=== PATIENT | female | born 1990 | race Caucasian/White ===

== ENCOUNTER 2023-02-01 08:30 | Outpatient (RCR) | payer BC, SELFPAY | END 2023-06-01 23:59 | disposition home or self-care (01) | PROVIDERS: Visit Provider Physician Assistant | DX: N39.3 Stress incontinence (female) (male) (principal); M54.50 Low back pain, unspecified; M62.81 Muscle weakness (generalized); M62.89 Other specified disorders of muscle; Z51.89 Encounter for other specified aftercare | CPT/HCPCS: 97110; 97140; 97162 ==

== ENCOUNTER 2023-07-12 09:58 | Inpatient (IN) | payer BC, SELFPAY ==
[2023-07-12] VITALS (70 sets, daily range): BP systolic 98–149; BP diastolic 47–82; PULSE 95–146; RESP 16; TEMP 36.5–36.9; O2SAT 93–99; BMI 40.2
[2023-07-12] MEDS: LACTATED RINGERS 1000 ML 1,000 ML IV (09:11)
[2023-07-12 09:17] LABS: Eosinophils Percent Auto 0.2 % (0.0-7.0); Hematocrit 40.7 % (33.0-51.0); Hemoglobin* 13.6 gm/dL (12.0-16.0); Immature Granulocytes Pct Auto 0.5 %; Lymphocytes Percent Auto 5.1 % (20-44); Mean Corpuscular HGB Conc 33 gm/dL (32-36); Mean Corpuscular Hemoglobin 29 pg (26-34); Mean Corpuscular Volume 87 fL (80-100); Monocytes Percent Auto 3.8 % (0.0-11.0); Neutrophils Percent Auto 90.4 % (42.0-72.0); Platelet Count* 240 K/uL (140-440); RDW Coefficient of Variation % 14.2 % (11.5-15.5); Red Blood Count 4.66 m/uL (4.00-5.20); White Blood Count* 20.99 K/uL (4.50-11.00)
[2023-07-12 09:20] LABS: Slide Review Reflex No
--- NOTE | 2023-07-12 09:55 | P.OBHP_ITS ---
OB - H&P; HPI Antepartum History of Present Illness Time Seen by Provider: 09:00 Date Seen: 07/12/23 Chief complaint: Maternity Narrative: Lorenza Gandhi is a 33 year old female who presents today in labor requesting an epidural. She was seen during this by a home guest relations officer practice and received regular care from them. She began having regular contractions last night around 2100 and SROM with reportedly clear fluid at 2330. Did have some bloody show with initially ROM. She labored at home all night with support of her Nuclear Power Reactor Operator, partner and her sister. She does report a vaginal exam before leaving for the hospital and is documented as incomplete cervical exam due to maternal position and discomfort and some dilation and effacement have occurred. No other cervical examinations are documented. She presents with regular contractions that palpate strong and states that she is exhausted. She is accompanied by her Kit. She declines an cervical exam at this time but is agreeable to one after epidural is placed. LMP 09/19/22, BAY 06/26/23. Ultrasound on 12/12/22 showed 12.6 weeks and BAY of 06/20/23. After epidural placement SVE was 8cm/90%/-1. She is comfortable with her epidural and able to rest. Supported by her and her home guest relations officer has arrived for support as well. OB problem list:? 1. BMI 33.9 2. Hx of depression, SAD, and depression. 3. Declined GDM screening. No growth US. 4. GBS negative ? IMAGING:??? 1st trimester: 12/12/22 by [facility]: Single IUD, gestational age 12wks 6 days, no subchorionic hemorrhage, neither ovary is identified.?? Anatomy scan:? 03/13/23 by [facility]: Single fetus in cephalic position, good movement, 145 bpm, anterior placenta with no evidence of placenta previa or abruption, normal amniotic fluid, no anomalies identified, intracranial contents are normal and symmetric, spine normal, kidneys, abdomen, and bladder unremarkable, four chamber heart is well demonstrated, three vessel umbilical cord inserts normally, extremities unremarkable, estimated gestational age 20 weeks 4 days, EDC 06/23/23?? Others: 07/11/23 by [facility]: cephalic, FHR 133, KYUNG 8.5, BPP 8/8.??? [place]?? ONLY IF TRANSFER PT? ?OB Labs:?Blood type: O+, antibody screen negative.?Hgb (05/24/23): 12.5?Platelets (05/24/23): 214?Rubella: declined RPR: declined?HBsAg: declined?HIV: declined?GC/Chlamydia: declined?Pap (08/17/21): NIL, HVP negative (done at [place])?1hr gtt: declined?GBS (06/07/23): negative??? History of Present Dating criteria: based on LMP care: good care Ultrasounds: normal 1st trimester US and normal mid trimester US complications: other (declined GMD screening, no growth US) Medical complications: none Labs Blood type: O (+) positive Rubella: unknown RPR/VDLR: unknown GBS status: negative HBsAG: unknown Review of Systems Status of ROS: Reports: 10 or more systems reviewed and unremarkable except as noted in History and below Const: Reports: fatigue Endo: Reports: fatigue Meds Home Medications and Allergies Home Medications ?Medication ?Instructions ?Recorded ?Confirmed ?Type docosahexaenoic acid 200 mg 200 mg PO QDAY 08/17/21 07/12/23 History capsule ( DHA) omega-3 fatty acids 500 mg capsule 500 mg PO QDAY 08/17/21 07/12/23 History Allergies Allergy/AdvReac Type Severity Reaction Status Date / Time No Known Allergies Allergy Verified 07/12/23 09:36 OB - H&P: Exam Physical Exam: Vital signs: Pulse BP Pulse Ox 111 H 135/80 97 07/12/23 09:16 07/12/23 09:16 07/12/23 09:09 Constitutional: Constitutional: no acute distress Routine HEENT Exam: Eye: Present normal appearance Routine Neck Exam: Neck: Present full ROM Routine Respiratory Exam: Respiratory: Present CTA bilaterally Routine Cardiovascular Exam: Cardiovascular: RRR Routine Exam: Perineum Description: Normal Detailed Labor and Delivery Exam: Patient Gravid: Yes Dilation (cm): 8 Effacement (%): 90 Tachysystole: No Contraction intensity: Strong/Firm Fetus (Single): Station: -1 Amniotic Membrane Status: SROM Amniotic Membrane Fluid Description: Clear Heart Rate Baseline: 130 Monitor Accelerations: Present Monitor Decelerations: None Custodial Variability: Moderate (6-25) Routine Back/Spine/Pelvis Exam: Back/Spine: full ROM Routine Neurological Exam: Present alert and oriented X3 Routine Psychiatric Exam: Present normal affect and normal thought process OB - Results Labs Labs: Short CBC 07/12/23 Range/Units 09:02 WBC 20.99 H (4.50-11.00) K/uL Hgb 13.6 (12.0-16.0) gm/dL Hct 40.7 (33.0-51.0) % Plt Count 240 (140-440) K/uL OB - A/P Antepartum Assessment and Plan (1) Maternal exhaustion complicating labor and delivery: Status: Acute (2) Pain during labor: Status: Acute (3) with more than 42 weeks gestation: Status: Acute Plan ASSESSMENT:? at 42.2 weeks gestation? GBS negative? complicated by: post dates at 42.2 weeks, obesity, planned home transfer for epidural d/t exhaustion, declines GMD screening without growth US ? Postterm labor? ?? PLAN:? 1. Candidate for analgesia of choice. Presents for epidural analgesia secondary to maternal exhaustion. 2. Anticipate ? 3. Expectant management at this time.? 4. IV in place for epidural per policy. 5. Continuous monitoring after epidural placement per unit policy.? ? Additional Plan Plan: expectant management
--- NOTE | 2023-07-12 10:46 | P.ANBPRC_ITS ---
[facility] Medical History (Updated 08/17/21 @ 18:41 by Keira Rodríguez CNM) Threatened ?O20.0 - Threatened (ICD-10) Normal spontaneous vaginal delivery ?O80 - Encounter for full-term uncomplicated delivery (ICD-10) Generalized anxiety disorder (08/09/06) ?F41.1 - Generalized anxiety disorder (ICD-10) Encounter for supervision of normal first in third trimester ?Z34.03 - Encounter for supervision of normal first , third trimester (ICD-10) Encounter for induction of labor ?Z34.90 - Encounter for supervision of normal , unspecified, unspecified trimester (ICD-10) Dysmenorrhea ?N94.6 - Dysmenorrhea, unspecified (ICD-10) Adjustment disorder with depressed mood (12/19/07) ?F43.21 - Adjustment disorder with depressed mood (ICD-10) Social History Smoking Status: Never smoker Little interest or pleasure in doing things: not at all Feeling down, depressed, or hopeless: not at all Meds Home Medications and Allergies Home Medications ?Medication ?Instructions ?Recorded ?Confirmed ?Type docosahexaenoic acid 200 mg 200 mg PO QDAY 08/17/21 07/12/23 History capsule ( DHA) omega-3 fatty acids 500 mg capsule 500 mg PO QDAY 08/17/21 07/12/23 History Allergies Allergy/AdvReac Type Severity Reaction Status Date / Time No Known Allergies Allergy Verified 07/12/23 09:36 Results Labs Labs: Laboratory Results - last 24 hr 07/12/23 09:02 WBC 20.99 H RBC 4.66 Hgb 13.6 Hct 40.7 MCV 87 MCH 29 MCHC 33 RDW Coeff of Earl 14.2 Plt Count 240 Neut % (Auto) 90.4 H Lymph % (Auto) 5.1 L Shannon % (Auto) 3.8 Eos % (Auto) 0.2 Baso % (Auto) 0.0 Neut # (Auto) 19.00 H Lymph # (Auto) 1.10 Shannon # (Auto) 0.80 Eos # (Auto) 0.00 Baso # (Auto) 0.00 Abs Immat Gran (auto) 0.10 Imm/Tot Granulo (auto) 0.5 Blood Type O Positive Antibody Screen NEGATIVE Vital Signs Vital Signs: Last Vital Signs Pulse 112 H 07/12/23 10:45 BP 122/58 L 07/12/23 10:45 Pulse Ox 98 07/12/23 10:45 Weight: 134.581 kg Height: 182.88 cm Anesthesia Procedures Epidural Insertion Patient Location: OB Start Time: 10:15 Stop Time: 10:47 Start Date: 07/12/23 Stop Date: 07/12/23 Reason for Block: procedure for pain Patient Position: sitting Performed By: Keith Mckeon Preanesthetic Checklist: IV checked, risks and benefits discussed, monitors and equipment checked, pre-op evaluation, timeout performed and anesthesia consent Prep: chlorhexidine gluconate Monitoring: blood pressure monitoring, continuous pulse oximetry and heart rate Approach: midline Vertebral Space: lumbar (1-5) Epidural Technique: NIDHI saline Needle Type: Tuohy needle Injection Technique: continuous catheter Needle gauge: 17 Needle Length (cm): 10 cm Needle Insertion Depth (cm): 7 Catheter Gauge: 19 Catheter Type: multi-orifice Catheter at skin depth (cm): 13 Test Dose Result: negative and lidocaine 1.5% with epinephrine 1 to 200,000
[2023-07-12] MEDS: ROPIVACAINE 0.2% 100 ml 100 ML 12 MG EPIDURAL (10:48)
[2023-07-12] MEDS: BUPIVACAINE 0.25% PF 10 ML 10 ML ML EPIDURAL (10:49)
[2023-07-12] MEDS: LACTATED RINGERS 1000 ML 1,000 ML 125 ML IV ×2 (10:51→16:11)
--- NOTE | 2023-07-12 15:32 | P.OBPN_ITS ---
Subjective Date Seen: 07/12/23 Narrative: Lorenza continues to labor with an effective epidural in place. She was feeling sick and nauseous. Her pulse was elevated 90-110 at that time. She requested a SVE and was found to have only a small anterior cervical rim. The rim was easily reduced with slight pushing effort by Lorenza with informed consent and verbal permission. She began pushing at 1450 with guidance. She is having difficulty directing her pushes and will continue to work with her to push effectively. Around 1600 we had a discussion about her contraction spacing and loosing effectiveness of contractions. We discussed the option of adding Pitocin and the risks and benefits. Gave her to option to consider it now or wait for a little while to see how pushing progresses. She would like to add Pitocin at this time. Titration began around 1599. Objective Vital Signs: Last Vital Signs Temp 97.8 F 07/12/23 14:39 Pulse 112 H 07/12/23 15:21 Resp 16 07/12/23 14:39 BP 138/61 07/12/23 15:21 Pulse Ox 98 07/12/23 14:44 Pelvic Exam Dilation (cm): 10 Effacement (%): 100 Station: 0 Contractions Monitor mode: External Contraction Frequency: 2-5 Contraction pattern: Regular Contraction intensity: Strong/Firm Assessment Assessment: active labor Station: -1 Amniotic Membrane Status: SROM Heart Rate Baseline: 130 Carriage Rider Variability: Moderate (6-25) (with periods of minimal variability ) Monitor Accelerations: Present Monitor Decelerations: Variable Plan Plan: ASSESSMENT:? at 42.2 weeks gestation? GBS negative? complicated by: post dates at 42.2 weeks, obesity, planned home transfer for epidural d/t exhaustion, declined GMD screening without growth US ? Postterm labor? ?? PLAN:? 1. Effective epidural analgesia in place. 2. Anticipate ? 3. Augmentation of labor with IV Pitocin titration. 4. IV in place for epidural and Pitocin titration per policy. 5. Continuous monitoring per unit policy.?
[2023-07-12] MEDS: OXYTOCIN 30 unit/500 ML in NS 30 UNIT/500 ML BAG IVPB (15:33)
--- NOTE | 2023-07-12 19:31 | W.PM.OBVAGDE ---
OB Procedure Vag Delivery Mother Details Mother Details: The patient is a 33 year-old, 4, Para 1, admitted on 07/12/23 at Days gestation. : 4 Para: 2 Weeks Gestation: 42.2 Admission Date: 07/12/23 Additional Details Amniotic Membrane Status: SROM Amniotic Membrane Rupture Date: 07/12/23 Amniotic Membrane Rupture Time: 23:30 Amniotic Membrane Fluid Description: Clear (initially clear but light meconium stained at delivery) Analgesia/Anesthesia Type: Epidural Waterbirth: No Pitcoin: Yes Intrapartal Events: Labor Augmentation, ROM >18 Hours and Prolonged 2nd Stage >2.5 Hrs Delivery augmentation: pitocin Labor Onset: 21:00 Complete: 14:56 Pushin:50 (Began oushing with small anterior rim that easily reduced with first push) Heart: heart tones during second stage were category 2. Baseline 145-150, minimal variability with periods of moderate, + accels, variable and early decels. Delivery Details Delivery Date: 07/12/23 Delivery Time: 18:40 Route of delivery: Infant Gender: Male Infant Viability: Alive; Heart Rate Present Position at Delivery: OA Delivery Details: Patient was admitted in active labor. She had planned a home but transferred to us for an epidural due to exhaustion. She received her epidural shortly after arrival and progressed with Pitocin augmentation in the second stage of labor. SROM noted on 07/11/23 at 2330 with clear fluid initially but did have amniotic stained at delivery. Patient was complete at 1456 after starting to push at 1450 and a small anterior lip was easily reduced. She pushed until 1616 when she and her apartment community assistant manager requested she take a break in pushing due to maternal fatigue and lack of strong contractions. Continued to increase Pitocin and she rested at 1735 she felt pressure and was found to have made descent so pushing was resumed. of a viable male at 1840 in left side lying. Vertex delivered OA. No nuchal cord or shoulder. Body delivered easily and without incident. Infant passed to mothers abdomen with a vigorous cry. Cord was clamped and cut at > 5 minutes. APGARS were 8 at one minute and 9 at five minutes respectively. Mouth was bulb suctioned. Intact placenta with a 3 vessel cord delivered spontaneously at 1859. Fundus firm. Intact perineum was identified and no repair was necessary. There was extra tissue present that the patinet states is from her previous laceration with previous delivery. She states that it is not painful, bothersome, or noticeable to her. QBL 125 cc. Mother and baby stable; mother plans to breastfeed. Infant weight pending.? 1 Minute Interval Total Score: 8 5 Minute Interval Total Score: 9 Additional Details Shoulder Dystocia: No Placenta Delivery Time: 18:59 Placental Delivery Description: Spontaneous Procedure Done: Global Blood Loss: 125 Laceration: None Episiotomy Description: None Blood Loss Measurement Type: QBL Bakri Used: No Cord Vessel Description: 3 Vessels Event Summary Status: Mother and were stable after delivery. Disposition: floor
[2023-07-12] MEDS: IBUPROFEN 600 MG TABLET PO (21:39)
[2023-07-13 00:30] VITALS: BP 117/76; PULSE 87; RESP 18; TEMP 36.6
[2023-07-13 03:45] VITALS: BP 115/74; PULSE 85; RESP 16; TEMP 36.6
[2023-07-13 08:11] VITALS: BP 113/76; PULSE 86; RESP 16; TEMP 36.4; O2SAT 98
[2023-07-13] MEDS: IBUPROFEN 600 MG TABLET PO ×2 (08:17→14:38)
[2023-07-13] MEDS: DOCUSATE SODIUM 100 MG CAPSULE PO (08:17)
--- NOTE | 2023-07-13 08:17 | PM.OBDSVD1 ---
DS: Providers Provider Date Seen: 07/13/23 Date of admission: 07/12/23 09:58 Primary care physician: Not a Local Provider Admitting Clinician: Tanya Rodriguez CNM Attending Physician on discharge: Keira Rodríguez CNM DS: Diagnosis Discharge Diagnosis (1) care and examination immediately after delivery: Status: Acute (2) Lactating mother: Status: Acute (3) Elevated BP without diagnosis of hypertension: Status: Acute Exam Narrative: Exam Narrative: GENERAL APPEARANCE:? normal affect, alert, no distress MOOD:? appropriate CHEST:? clear to auscultation HEART:? regular rate and rhythm ABDOMEN:? soft, non-tender the uterine fundus is At Umbilicus, Midline and is appropriate for the stage of recovery. PERINEUM:? mild edema of the perineum. EXTREMITIES:? normal and trace edema Const: Vital Signs, click to edit/add: Vital Signs - 24 hr 07/12/23 09:09 07/12/23 09:16 07/12/23 10:15 Temperature Pulse Rate 111 H Pulse Rate [Pulse Oximeter] Respiratory Rate Blood Pressure 135/80 Blood Pressure [Le ft Arm] Pulse Oximetry 97 99 Oxygen Delivery Me thod 07/12/23 10:20 07/12/23 10:25 07/12/23 10:30 Temperature Pulse Rate Pulse Rate [Pulse Oximeter] Respiratory Rate Blood Pressure Blood Pressure [Le ft Arm] Pulse Oximetry 99 99 98 Oxygen Delivery Me thod 07/12/23 10:31 07/12/23 10:33 07/12/23 10:35 Temperature Pulse Rate 104 H Pulse Rate [Pulse Oximeter] Respiratory Rate Blood Pressure 135/79 Blood Pressure [Le ft Arm] Pulse Oximetry 93 97 Oxygen Delivery Me thod 07/12/23 10:38 07/12/23 10:39 07/12/23 10:40 Temperature Pulse Rate 100 98 Pulse Rate [Pulse Oximeter] Respiratory Rate Blood Pressure 134/71 139/70 Blood Pressure [Le ft Arm] Pulse Oximetry 97 Oxygen Delivery Me thod 07/12/23 10:41 07/12/23 10:44 07/12/23 10:45 Temperature Pulse Rate 113 H 106 H 112 H Pulse Rate [Pulse Oximeter] Respiratory Rate Blood Pressure 134/64 121/56 L 122/58 L Blood Pressure [Le ft Arm] Pulse Oximetry 98 Oxygen Delivery Me thod 07/12/23 10:47 07/12/23 10:49 07/12/23 10:50 Temperature Pulse Rate 114 H 112 H Pulse Rate [Pulse Oximeter] Respiratory Rate Blood Pressure 118/59 L 117/61 Blood Pressure [Le ft Arm] Pulse Oximetry 98 Oxygen Delivery Me thod 07/12/23 10:51 07/12/23 10:52 07/12/23 10:53 Temperature 98.4 F Pulse Rate 107 H 115 H Pulse Rate [Pulse Oximeter] Respiratory Rate 16 Blood Pressure 122/59 L 115/57 L Blood Pressure [Le ft Arm] Pulse Oximetry Oxygen Delivery Me thod 07/12/23 10:55 07/12/23 11:00 07/12/23 11:04 Temperature Pulse Rate 127 H 110 H Pulse Rate [Pulse Oximeter] Respiratory Rate Blood Pressure 106/54 L 126/58 L Blood Pressure [Le ft Arm] Pulse Oximetry 97 98 Oxygen Delivery Me thod 07/12/23 11:05 07/12/23 11:10 07/12/23 11:15 Temperature Pulse Rate Pulse Rate [Pulse Oximeter] Respiratory Rate Blood Pressure Blood Pressure [Le ft Arm] Pulse Oximetry 96 98 97 Oxygen Delivery Me thod 07/12/23 11:20 07/12/23 11:24 07/12/23 11:25 Temperature Pulse Rate 106 H Pulse Rate [Pulse Oximeter] Respiratory Rate Blood Pressure 121/60 Blood Pressure [Le ft Arm] Pulse Oximetry 96 98 Oxygen Delivery Me thod 07/12/23 11:41 07/12/23 11:45 07/12/23 11:50 Temperature 97.7 F Pulse Rate 123 H 112 H Pulse Rate [Pulse Oximeter] Respiratory Rate 16 Blood Pressure 98/55 L 105/56 L Blood Pressure [Le ft Arm] Pulse Oximetry Oxygen Delivery Me thod 07/12/23 12:06 07/12/23 12:23 07/12/23 12:36 Temperature Pulse Rate 108 H 105 H 112 H Pulse Rate [Pulse Oximeter] Respiratory Rate Blood Pressure 110/54 L 113/58 L 114/55 L Blood Pressure [Le ft Arm] Pulse Oximetry Oxygen Delivery Me thod 07/12/23 12:56 07/12/23 13:06 07/12/23 13:21 Temperature 98.5 F Pulse Rate 121 H 121 H Pulse Rate [Pulse Oximeter] Respiratory Rate 16 Blood Pressure 114/56 L 116/53 L Blood Pressure [Le ft Arm] Pulse Oximetry Oxygen Delivery Ny thod 07/12/23 13:36 07/12/23 13:52 07/12/23 14:02 Temperature 98.2 F Pulse Rate 126 H 121 H Pulse Rate [Pulse Oximeter] Respiratory Rate 16 Blood Pressure 109/54 L 105/56 L Blood Pressure [Le ft Arm] [facility] 14[facility]07 07/12/23 14:22 07/12/23 14:37 Temperature Pulse Rate 113 H 130 H 136 H Pulse Rate [Pulse Oximeter] Respiratory Rate Blood Pressure 123/56 L 121/59 L 118/57 L Blood Pressure [Le ft Arm] Pulse Oximetry [facility] 14:39 07/12/23 14:39 07/12/23 14:44 Temperature 97.8 F Pulse Rate Pulse Rate [Pulse Oximeter] Respiratory Rate 16 Blood Pressure Blood Pressure [Le ft Arm] Pulse Oximetry 98 98 [facility] 14:53 07/12/23 15:06 07/12/23 15:21 Temperature Pulse Rate 127 H 116 H 112 H Pulse Rate [Pulse Oximeter] Respiratory Rate Blood Pressure 124/60 129/59 L 138/61 Blood Pressure [Le ft Arm] Pulse Oximetry [facility] 15:34 07/12/23 15:51 07/12/23 16:07 Temperature 98.1 F Pulse Rate 134 H 115 H Pulse Rate [Pulse Oximeter] Respiratory Rate 16 Blood Pressure 120/58 L 129/58 L Blood Pressure [Le ft Arm] Pulse Oximetry [facility] 16:34 07/12/23 16:36 07/12/23 17:06 Temperature 97.8 F Pulse Rate 117 H 123 H Pulse Rate [Pulse Oximeter] Respiratory Rate 16 Blood Pressure 121/77 108/47 L Blood Pressure [Le ft Arm] Pulse Oximetry [facility] 17:21 07/12/23 17:31 07/12/23 17:36 Temperature 98.4 F Pulse Rate 114 H 117 H Pulse Rate [Pulse Oximeter] Respiratory Rate 16 Blood Pressure 110/51 L 102/51 L Blood Pressure [Le ft Arm] Pulse Oximetry Oxygen Delivery Me thod 07/12/23 18:11 07/12/23 18:50 07/12/23 19:12 Temperature Pulse Rate 115 H 111 H 95 Pulse Rate [Pulse Oximeter] Respiratory Rate Blood Pressure 130/68 142/66 H 130/70 Blood Pressure [Le ft Arm] Pulse Oximetry Oxygen Delivery Ny thod 07/12/23 19:27 07/12/23 19:42 07/12/23 19:57 Temperature Pulse Rate 97 100 98 Pulse Rate [Pulse Oximeter] Respiratory Rate Blood Pressure 147/79 H 143/73 H 149/77 H Blood Pressure [Le ft Arm] Pulse Oximetry Oxygen Delivery Ny thod 07/12/23 20:12 07/12/23 20:27 07/12/23 20:42 Temperature Pulse Rate 113 H 113 H 122 H Pulse Rate [Pulse Oximeter] Respiratory Rate Blood Pressure 135/78 133/66 127/70 Blood Pressure [Le ft Arm] Pulse Oximetry Oxygen Delivery Ny thod 07/12/23 20:56 07/12/23 21:37 07/13/23 00:30 Temperature 97.9 F 97.8 F Pulse Rate 146 H Pulse Rate [Pulse Oximeter] 104 H 87 Respiratory Rate 16 18 Blood Pressure 131/79 Blood Pressure [Le ft Arm] 132/82 117/76 Pulse Oximetry 97 Oxygen Delivery Ny thod Room Air 07/13/23 03:45 07/13/23 08:11 Temperature 97.8 F 97.5 F L Pulse Rate Pulse Rate [Pulse Oximeter] 85 86 Respiratory Rate 16 16 Blood Pressure Blood Pressure [Le ft Arm] 115/74 113/76 Pulse Oximetry 98 Oxygen Delivery Ny thod Room Air OB - DS: Summary Hospital Course Hospital Course: Lorenza is a 33 y.o. G 4 P 2021 who was admitted to [facility] for spontaneous labor attempting homebirth but transferred to hospital for pain management. ?She had a NVD that was uncomplicated. The patient feels well. ?The pain is well controlled with current medications. ?She has no new complaints. ?She is breast feeding and reports things are going well. the patient has done well.? Vitals have been stable.?She had some mild range blood pressures immediately after delivery during recovery but has not had any since. She has remained afebrile.? Has a good appetite, is tolerating a general diet. ?She is voiding without difficulty.? She is passing gas and has not had a bowel movement.? She is ambulating and denies any dizziness.? Has small amount of rubra lochia. Problems: none plan: Discharge home with baby. Follow up in 2 weeks and 6 weeks. , may see if needed Peripartum Data Infant delivery method: Vaginal Laceration description: None complications: none Gender: Male Discharge Plan: Home Status at Discharge Functional status at discharge: independent ambulation Overall status at discharge: patient is progressing back to baseline Time Spent with Patient Time attestation: Total time spent providing and/or coordinating discharge services: Time spent: Less than 30 minutes Discharge Plan Discharge Disposition: Home, Self-Care Date of Admission: 07/12/23 09:58 Attending Provider on Discharge: Keira Rodríguez Primary Care Provider: Provider,Not a Local Condition: Stable Anticipated Discharge Date/Time: 07/13/23 12:00 Discharge Medications: New acetaminophen 500 mg Tablet 1,000 mg PO Q6H PRNQty: 0 0RF docusate sodium 100 mg Capsule 100 mg PO DAILY Qty: 90 0RF ibuprofen 600 mg Tablet 600 mg PO Q6H PRNQty: 60 0RF Continued DHA 200 mg capsule 200 mg PO QDAY omega-3 fatty acids 500 mg capsule 500 mg PO QDAY Discharge Orders: Discharge Order (Routine); Ordered 07/13/23 Ordered By: Keira Rodríguez Patient Education: OB Over the Counter Medication Information, OB Vaginal/Breast Feeding Additional Instructions: Discharge instructions were reviewed with the patient including signs and symptoms of infection and home going medications Nothing vaginally for 6 weeks: no tampons or intercourse Do not drive while taking narcotic pain medication(s) Off Work or School for 8 weeks 2-week visit: discuss feeding concerns, review control options and screen for anxiety/depression. 6-week visit for an annual exam. consultation services are available to all mothers and babies for the first year after delivery.? To make an appointment, please call [phone]. Activity Level: Activity as Tolerated Discharge Diet: Regular Follow Up Appointments: [facility] [Provider Group] Forms: [facility] Info Instructions
[2023-07-13 13:29] VITALS: BP 123/70; PULSE 80; RESP 16; TEMP 36.4; O2SAT 98
--- NOTE | 2023-07-13 13:36 | PM.ANPOST ---
Post Anesthesia Note Post Anesthesia Note Patient seen: Inpatient Respiratory Status: adequate Cardiovascular Status: adequate Mental Status: baseline Pain: adequate Temp: baseline Anesthetic awareness: N/A Complications: none Follow care: none
[2023-07-13 16:22] VITALS: BP 106/67; PULSE 88; RESP 16; TEMP 36.5; O2SAT 96
[2023-07-13 18:46] LABS: Rapid Plasma Reagin (RPR) Non Reactive (Non Reactive)
== END 2023-07-13 21:00 | disposition home or self-care (01) | DRG 560 ==
LOC: OB OUT 09:59 → OB 09:59
PROVIDERS: Admitting Provider Advanced Practice Midwife; Visit Provider Advanced Practice Midwife
DX: O48.1 Prolonged pregnancy (principal); O75.81 Maternal exhaustion complicating labor and delivery; O99.214 Obesity complicating childbirth; E66.9 Obesity, unspecified; O99.344 Other mental disorders complicating childbirth; F43.21 Adjustment disorder with depressed mood; R03.0 Elevated blood-pressure reading, without diagnosis of hypertension; F41.1 Generalized anxiety disorder; Z3A.49 Greater than 42 weeks gestation of pregnancy; Z37.0 Single live birth
CPT/HCPCS: 01967; 36415; 85025; 86592; 86850; 86900; 86901; A9270; J0665; J2795; J7120